=== PATIENT | male | born 1955 | race Caucasian/White ===

== ENCOUNTER → 2022-08-10 10:55 | Outpatient (BNVA) | payer MEDICARE, BC, SELFPAY | PROVIDERS: Family Provider Family Medicine; PCP Registered Nurse; Visit Provider Internal Medicine Pulmonary Disease | DX: J45.909 Unspecified asthma, uncomplicated (principal); R06.02 Shortness of breath | CPT/HCPCS: 36415; 82785; 85025; 86003; 99204 ==

== ENCOUNTER 2022-08-16 06:49 | Outpatient (CLI) | payer MEDICARE, BC, SELFPAY ==
--- NOTE | 2022-08-16 07:14 | CT_ITS ---
WS: [id number] CT NECK TECHNIQUE: Contrast-enhanced CT of the neck with coronal and sagittal reformatted images. CLINICAL INFORMATION: DYSPHAGIA COMPARISON: CT neck 2018 DLP: 162.[address] scans at [facility] use at least one of these dose optimization techniques: automated e xposure control; mA and/or kV adjustment per patient size (includes targeted exams where dose is matc hed to clinical indication); or iterative reconstruction. FINDINGS: Lung apices are well aerated. LEFT mastoid air cells well aerated. Prior RIGHT canal wall up mastoide ctomy. Visualized mastoidectomy bowl well aerated. Maxillary sinusitis with air-fluid levels and mild mucosal thickening. Mild mucosal thickening in the ethmoid air cells and sphenoid sinuses. Normal posterior nasopharynx. Normal parapharyngeal fat. Chronic LEFT submandibular duct calculus is unchanged since 2018. Absent or atrophic LEFT submandibular gland. Normal RIGHT submandibular gland. No evidence of supraglottic or glottic mass. Normal palatine tonsils. Normal glottis. Normal subglott ic airway. Parotid glands are normal. No cervical lymphadenopathy. Straightening of the normal cervic al lordosis. Moderate spondylitic changes cervical spine. Mild carotid bulb calcification. CT/CT neck w con* [id number] IMPRESSION: 1. Chronic LEFT submandibular duct calculus measuring 9 mm unchanged since 201 8. Absent or atrophic LEFT submandibular gland. 2. Salivary glands are otherwise normal in appearance. 3. Normal posterior nasopharynx. Normal parapharyngeal fat. 4. No evidence of supraglottic or glottic mass. 5. No cervical lymphadenopathy. 6. Prior RIGHT canal wall up mastoidectomy 7. Mild maxillary sinusitis.
[2022-08-16 07:45] LABS: Blood Urea Nitrogen 12 mg/dL (8-23); Glomerular Filtration Rate 84.7 mL/min (90-130)
[2022-08-16] MEDS: iohexol 350 mg/mL 500 mL Btl (per mL) IV (07:56)
--- NOTE | 2022-08-16 07:59 | FL_ITS ---
WS: [id number] Exam: FL barium swallow [id number] Date/Time of Exam: 08/16/2022 8:06 AM Reason For Exam: DYSPHAGIA Fluoroscopy time: 2min [id number] minutes # of spot films: 7 Swallowing function at the level of the oropharynx was normal. No aspiration identified. The esophagu s is smooth in contour with normal motility. No sign of esophageal stricture or mass. No hiatal herni a. No reflux was observed during fluoroscopy. FL/FL barium swallow [id number] IMPRESSION: 1. Unremarkable barium swallow.
== END 2022-08-16 06:50 | disposition home or self-care (01) ==
LOC: RAD 06:53
PROVIDERS: PCP Registered Nurse; Visit Provider Specialist
DX: R13.10 Dysphagia, unspecified (principal); J32.0 Chronic maxillary sinusitis
CPT/HCPCS: 70491; 74220; 82565; 84520; Q9967

== ENCOUNTER 2022-08-23 10:00 | Outpatient (CLI) | payer MEDICARE, BC, SELFPAY ==
--- NOTE | 2022-08-23 10:17 | FL_ITS ---
WS: [id number] FL barium swallow modifd [id number] REASON FOR EXAM: Other dysphagia FLUOROSCOPY TIME: 2min [id number] # OF SPOT FILMS: 0 FINDINGS: Examination was supervised by the speech therapy department. The swallowing of multiple consistencies of barium in the upright sitting lateral projection was dario tored fluoroscopically and recorded. Detailed analysis and report will be rendered by the speech therapy department. No aspiration noted. FL/FL barium swallow modifd [id number] IMPRESSION: Modified barium swallow as above.
== END 2022-08-23 10:01 | disposition home or self-care (01) ==
LOC: RAD 10:04
PROVIDERS: PCP Registered Nurse; Visit Provider Specialist
DX: R13.19 Other dysphagia (principal)
CPT/HCPCS: 74230

== ENCOUNTER 2022-09-06 07:45 | Outpatient (CLI) | payer MEDICARE, BC, SELFPAY ==
[2022-09-06 08:01] VITALS: PULSE 69; RESP 16; O2SAT 99
[2022-09-06] MEDS: albuterol 2.5 mg/3 mL Neb INHALATION (08:01)
[2022-09-06 08:06] VITALS: PULSE 71
[2022-09-06 08:21] VITALS: BP 110/76; BP 123/71
== END 2022-09-06 07:46 | disposition home or self-care (01) ==
PROVIDERS: PCP Registered Nurse; Visit Provider Internal Medicine Pulmonary Disease
DX: J45.909 Unspecified asthma, uncomplicated (principal); U09.9 Post COVID-19 condition, unspecified
CPT/HCPCS: 94618; J7613

== ENCOUNTER → 2023-01-02 12:57 | Outpatient (BNVA) | payer MEDICARE, BC, SELFPAY | PROVIDERS: PCP Registered Nurse; Visit Provider Internal Medicine Pulmonary Disease | DX: U09.9 Post COVID-19 condition, unspecified; R91.8 Other nonspecific abnormal finding of lung field; J45.20 Mild intermittent asthma, uncomplicated; Z87.891 Personal history of nicotine dependence | CPT/HCPCS: 99214 ==

== ENCOUNTER → 2023-07-05 10:58 | Outpatient (BNVA) | payer MEDICARE, BC, SELFPAY | PROVIDERS: PCP Registered Nurse; Visit Provider Internal Medicine Pulmonary Disease | DX: J45.30 Mild persistent asthma, uncomplicated (principal); U09.9 Post COVID-19 condition, unspecified; R05.3 Chronic cough; R91.8 Other nonspecific abnormal finding of lung field | CPT/HCPCS: 99214 ==

== ENCOUNTER 2023-07-27 10:55 | Outpatient (CLI) | payer MEDICARE, BC, SELFPAY ==
--- NOTE | 2023-07-27 12:00 | CTR_ITS ---
PROCEDURE INFORMATION: Exam: CT Chest Without Contrast; Diagnostic Exam date and time: 07/27/2023 11:41 AM Age: 67 years old Clinical indication: Abnormal findings; Abnormal radiologic exam of lung or chest; Additional info: To follow on left lung nodule in July 2022 TECHNIQUE: Imaging protocol: Diagnostic computed tomography of the chest without contrast. Radiation optimization: All CT scans at this facility use at least one of these dose optimization techniques: automated exposure control; mA and/or kV adjustment per patient size (includes targeted exams where dose is matched to clinical indication); or iterative reconstruction. COMPARISON: CT chest w con* [id number] 08/05/2022 11:58 AM RADIATION DOSE METRICS: Total DLP (mGy-cm): 358.24 FINDINGS: No thin slice images were provided. Lungs: Unchanged 4 mm left lower lobe nodule series 4, image 42. Unchanged right perifissural nodule on image 38. No new or enlarging pulmonary nodules Pleural spaces: No pneumothorax or pleural effusion. Heart: Coronary calcifications. No pericardial effusion. Lymph nodes: No enlarged lymph nodes. Vasculature: No aortic aneurysm. Bones/joints: No acute findings Soft tissues: No acute findings. CT/CT chest wo con [id number] IMPRESSION: Unchanged tiny pulmonary nodules. No new/acute chest findings
== END 2023-07-27 10:56 | disposition home or self-care (01) ==
LOC: RAD 10:55
PROVIDERS: PCP Registered Nurse; Visit Provider Internal Medicine Pulmonary Disease
DX: R91.8 Other nonspecific abnormal finding of lung field (principal)
CPT/HCPCS: 71250

== ENCOUNTER → 2023-11-06 13:01 | Outpatient (BNVA) | payer MEDICARE, BC, SELFPAY | PROVIDERS: PCP Registered Nurse; Visit Provider Surgery | DX: R13.10 Dysphagia, unspecified (principal) | CPT/HCPCS: 99204 ==

== ENCOUNTER 2024-01-10 07:06 | Day surgery (SDC) | payer MEDICARE, BC, SELFPAY ==
[2024-01-10 07:25] VITALS: BP 134/66; PULSE 64; RESP 16; TEMP 36.1; O2SAT 100; BMI 24.3
--- NOTE | 2024-01-10 07:43 | ANES.PREANE2 ---
Pre-Anesthetic Assessment Height/Weight: Height 5 ft 11 in Weight 174 lb Temp Pulse Resp BP Pulse Ox O2 Del Method 97 F L 64 16 134/66 100 Room Air 01/10/24 07:25 01/10/24 07:25 01/10/24 07:25 01/10/24 07:25 01/10/24 07:25 01/10/24 07:25 Operation Date: 01/10/24 08:30 Proposed Procedures p EGD Dilation W/ Balloon [id number], R13.10(Not Applicable) - Enzo Hale DO Last intake: Intake Last Liquid Date 01/09/24 Last Liquid Time 22:30 Last Solid Date 01/09/24 Last Solid Time 22:30 Social No alcohol and No tobacco Exam alert, oriented x 3 and clear to auscultation bilaterally Airway Submandibular: within normal limits Cervical ROM: within normal limits Mallampati: Class II Comments: Comments: few missing teeth on bottom Anesthetic Plan ASA status: 2 Anesthesia: MAC Other: No prior issues with anesthesia Patient notes difficulty swallowing, here for dilation today Patient had COVID 1 year ago and notes having chronic cough secondary to asthma and COVID METS greater than 4 Plan for MAC anesthesia Medications/Allergies Home Medications Medication Instructions Recorded Confirmed Last Taken Type budesonide-formoterol HFA 80 2 puff inhalation BID #10.2 grams 07/17/23 01/10/24 01/10/24 Rx mcg-4.5 mcg/actuation aerosol inhaler (Symbicort) atorvastatin 10 mg tablet 10 mg PO DAILY 11/06/23 01/10/24 01/09/24 History cyanocobalamin (vitamin B-12) 1,000 mcg PO DAILY 01/08/24 01/10/24 01/09/24 History 1,000 mcg tablet (Vitamin B-12) ferrous sulfate 325 mg (65 mg 65 mg PO DAILY 01/08/24 01/10/24 01/09/24 History iron) capsule,extended release Allergies Allergy/AdvReac Type Severity Reaction Status Date / Time No Known Allergies Allergy Verified 01/08/24 09:23 [facility] Anesthesia Family History Father Cancer, Onset Age: 56 colon cancer Social History Smoking and tobacco/nicotine status: former use of tobacco/nicotine Quit status (tobacco/nicotine): has quit using Year quit tobacco: 1978 Former quit date comment: 2-3 cigarettes/ day Second hand smoke exposure: No Alcohol intake: unknown Data Anesthesia Cardiac Studies: No Data to Display
[2024-01-10] MEDS: sodium chloride 0.9% 1,000 ML 30 ML IV (07:44)
--- NOTE | 2024-01-10 08:18 | PM.HP ---
Providers/Chief Complaint Primary Care Provider: Hellen Garcia Chief Complaint: R13.10 History of Present Illness Chilo Patiño is a 68 year old male Review of Systems General: Reports: 10 or more systems reviewed and unremarkable except in HPI and below Medications/Allergies Home Medications Medication Instructions Recorded Confirmed Last Taken Type budesonide-formoterol HFA 80 2 puff inhalation BID #10.2 grams 07/17/23 01/10/24 01/10/24 Rx mcg-4.5 mcg/actuation aerosol inhaler (Symbicort) atorvastatin 10 mg tablet 10 mg PO DAILY 11/06/23 01/10/24 01/09/24 History cyanocobalamin (vitamin B-12) 1,000 mcg PO DAILY 01/08/24 01/10/24 01/09/24 History 1,000 mcg tablet (Vitamin B-12) ferrous sulfate 325 mg (65 mg 65 mg PO DAILY 01/08/24 01/10/24 01/09/24 History iron) capsule,extended release Allergies Allergy/AdvReac Type Severity Reaction Status Date / Time No Known Allergies Allergy Verified 01/08/24 09:23 PFSH Acute PFSH: Family History Father Cancer, Onset Age: 56 colon cancer Social History Smoking and tobacco/nicotine status: former use of tobacco/nicotine Quit status (tobacco/nicotine): has quit using Year quit tobacco: 1978 Former quit date comment: 2-3 cigarettes/ day Second hand smoke exposure: No Alcohol intake: unknown Vitals/I&O/Wt Last Vital Signs Temp 97 F L 01/10/24 07:25 Pulse 64 01/10/24 07:25 Resp 16 01/10/24 07:25 BP 134/66 01/10/24 07:25 Pulse Ox 100 01/10/24 07:25 O2 Del Method Room Air 01/10/24 07:25 Weight last 48 hrs Weight 174 lb A&P Assessment and plan (1) Dysphagia: Plan EGD with possible balloon dilation Attestations Medical Necessity Statement*: Home Coding Level of Care Code Acute Code for Chg Fwd Diagnoses Dysphagia R13.10
[2024-01-10 08:43] VITALS: BP 109/68; PULSE 64; RESP 18; TEMP 36.3; O2SAT 99
[2024-01-10 08:56] VITALS: BP 109/61; PULSE 64; RESP 16; O2SAT 99
--- NOTE | 2024-01-10 09:20 | ANE.PACU2 ---
Inpatient post-anesthesia follow up: Airway intact: Yes Vital signs: Temperature 97.4 F Pulse Rate 64 Respiratory Rate 16 Blood Pressure 109/61 Pulse Oximetry 99 Oxygen Delivery Me thod Room Air Oxygen Flow Rate Fraction of Inspir ed Oxygen Hydration adequate: Yes Nausea and vomiting: No Pain level: 1 Mental status: Baseline
== END 2024-01-10 09:20 | disposition home or self-care (01) ==
PROVIDERS: PCP Registered Nurse; Visit Provider Surgery
DX: R13.10 Dysphagia, unspecified (principal); K22.2 Esophageal obstruction; K29.80 Duodenitis without bleeding; C41.9 Malignant neoplasm of bone and articular cartilage, unspecified; Z87.891 Personal history of nicotine dependence
CPT/HCPCS: 43239; 43249; 88305; J2704; J7030

== ENCOUNTER → 2024-01-26 08:43 | Outpatient (BNVA) | payer MEDICARE, BC, SELFPAY | PROVIDERS: PCP Registered Nurse; Visit Provider Surgery | DX: Z09 Encounter for follow-up examination after completed treatment for conditions other than malignant neoplasm (principal); R13.10 Dysphagia, unspecified; K22.2 Esophageal obstruction | CPT/HCPCS: 99214 ==

== ENCOUNTER 2024-02-13 08:45 | Oncology outpatient (recurring) (ONCR) | payer MEDICARE, BC, SELFPAY ==
[2024-02-13 09:11] LABS: Basophils % 0.4 %; Eosinophils % 0.4 %; Hematocrit 26.3 % (37-53); Lymphocytes # 0.4 10^3/uL (0.8-4.8); Lymphocytes % 15.4 %; Mean Corpuscular HGB Conc 33.5 g/dL (30-55); Mean Corpuscular Hemoglobin 38.3 pg (27-33); Mean Corpuscular Volume 114.3 fl (82-101); Mean Platelet Volume 9.7 fL (7.4-10.4); Monocytes # 0.1 10^3/uL (0.2-0.9); Monocytes % 3.3 %; Neutrophils # 2.19 10^3/uL (1.8-7.7); Neutrophils % 80.1 %; Nucleated Red Blood Cells % 0 %; Platelet Count 151 10^3/cmm (157-399); Red Cell Distribution Width 16.3 % (12.1-15.1); White Blood Count 2.73 10^3/uL (3.29-11.43)
[2024-02-13 09:34] LABS: Alanine Aminotransferase 23 U/L (0-41); Albumin Level 4.3 g/dL (3.5-5.2); Alkaline Phosphatase 103 U/L (40-130); Anion Gap 13.3 (5-19); Aspartate Amino Transferase 25 U/L (0-40); Blood Urea Nitrogen 17 mg/dL (8-23); Calcium 9.2 mg/dL (8.5-10.5); Carbon Dioxide 27 mmol/L (22-29); Chloride 100 mmol/L (98-107); Creatinine Clr Calc Pharmacy 97.7876; Globulin 2.9 g/dL (1.3-4.6); Glomerular Filtration Rate 96.4 mL/min (90-130); Glucose 106 mg/dL (65-115); Lactate Dehydrogenase 209 U/L (135-225); Osmolality Calculated 284 mOsm/kg (285-295); Potassium 4.3 mmol/L (3.5-5.1); Sodium 136 mmol/L (136-145); Total Bilirubin 0.5 mg/dL (0.15-1.2); Total Protein 7.2 g/dL (6.6-8.7)
[2024-02-13] MEDS: luspatercept-aamt 25 mg 80 MG SUBCUT (11:01)
== END 2024-02-13 23:59 | disposition home or self-care (01) ==
PROVIDERS: PCP Registered Nurse; Visit Provider Internal Medicine Medical Oncology
DX: Z53.9 Procedure and treatment not carried out, unspecified reason (principal); D46.1 Refractory anemia with ring sideroblasts; Z87.891 Personal history of nicotine dependence; Z79.899 Other long term (current) drug therapy
CPT/HCPCS: 36415; 80053; 82668; 83615; 85025; 96372; 99205; 99215; J0896

== ENCOUNTER 2024-03-05 10:03 | Oncology outpatient (recurring) (ONCR) | payer MEDICARE, BC, SELFPAY ==
[2024-03-05 10:17] LABS: Basophils % 1.6 %; Eosinophils # 0.1 10^3/uL (0.0-0.8); Hematocrit 28.2 % (37-53); Lymphocytes % 37.5 %; Mean Corpuscular HGB Conc 33.3 g/dL (30-55); Mean Corpuscular Hemoglobin 38.8 pg (27-33); Mean Corpuscular Volume 116.5 fl (82-101); Monocytes # 0.4 10^3/uL (0.2-0.9); Monocytes % 14.5 %; Neutrophils # 1.05 10^3/uL (1.8-7.7); Neutrophils % 40.9 %; Nucleated Red Blood Cells % 0 %; Platelet Count 147 10^3/cmm (157-399); Red Blood Count 2.42 10^6/uL (3.85-5.65); Red Cell Distribution Width 16.9 % (12.1-15.1); White Blood Count 2.56 10^3/uL (3.29-11.43)
[2024-03-05 10:38] LABS: Alanine Aminotransferase 19 U/L (0-41); Albumin Level 4.4 g/dL (3.5-5.2); Alkaline Phosphatase 100 U/L (40-130); Anion Gap 11.7 (5-19); Aspartate Amino Transferase 22 U/L (0-40); Blood Urea Nitrogen 23 mg/dL (8-23); Carbon Dioxide 27 mmol/L (22-29); Chloride 104 mmol/L (98-107); Creatinine Clr Calc Pharmacy 70.5744; Globulin 2.8 g/dL (1.3-4.6); Glomerular Filtration Rate 66.8 mL/min (90-130); Glucose 102 mg/dL (65-115); Osmolality Calculated 290 mOsm/kg (285-295); Potassium 4.7 mmol/L (3.5-5.1); Sodium 138 mmol/L (136-145); Total Bilirubin 0.5 mg/dL (0.15-1.2); Total Protein 7.2 g/dL (6.6-8.7)
[2024-03-05] MEDS: luspatercept-aamt 25 mg 75 MG SUBCUT (12:34)
== END 2024-03-05 23:59 | disposition home or self-care (01) ==
PROVIDERS: Nurse Practitioner Family; PCP Registered Nurse; Visit Provider Internal Medicine Medical Oncology
DX: D46.1 Refractory anemia with ring sideroblasts (principal); Z87.891 Personal history of nicotine dependence; Z79.899 Other long term (current) drug therapy
CPT/HCPCS: 36415; 80053; 85025; 96372; 99214; J0896

== ENCOUNTER 2024-03-26 12:46 | Oncology outpatient (recurring) (ONCR) | payer MEDICARE, BC, SELFPAY ==
[2024-03-26 13:41] LABS: Reticulocyte % 3.3 % (0.5-2.0)
[2024-03-26 13:42] LABS: Basophils % 0.9 %; Eosinophils % 0.9 %; Hematocrit 29.5 % (37-53); Lymphocytes # 1.1 10^3/uL (0.8-4.8); Lymphocytes % 35.3 %; Mean Corpuscular HGB Conc 33.2 g/dL (30-55); Mean Corpuscular Hemoglobin 39.2 pg (27-33); Mean Platelet Volume 9.8 fL (7.4-10.4); Monocytes # 0.3 10^3/uL (0.2-0.9); Monocytes % 9.1 %; Neutrophils # 1.59 10^3/uL (1.8-7.7); Neutrophils % 49.7 %; Nucleated Red Blood Cells % 0 %; Platelet Count 156 10^3/cmm (157-399); Red Cell Distribution Width 17.2 % (12.1-15.1)
[2024-03-26 14:14] LABS: Albumin Level 4.3 g/dL (3.5-5.2); Chloride 102 mmol/L (98-107); Potassium 4.9 mmol/L (3.5-5.1); Sodium 135 mmol/L (136-145)
[2024-03-26 14:30] LABS: Folate Level 15.9 ng/mL (4.5-32.2)
[2024-03-26] MEDS: luspatercept-aamt 25 mg 80.5 MG SUBCUT (15:04)
[2024-03-26 15:23] LABS: Alanine Aminotransferase 16 U/L (0-41); Alkaline Phosphatase 123 U/L (40-130); Anion Gap 12.9 (5-19); Aspartate Amino Transferase 20 U/L (0-40); Blood Urea Nitrogen 17 mg/dL (8-23); Calcium 8.8 mg/dL (8.5-10.5); Carbon Dioxide 25 mmol/L (22-29); Creatinine Clr Calc Pharmacy 87.2796; Globulin 2.3 g/dL (1.3-4.6); Glomerular Filtration Rate 84.2 mL/min (90-130); Glucose 96 mg/dL (65-115); Lactate Dehydrogenase 221 U/L (135-225); Osmolality Calculated 281 mOsm/kg (285-295); Total Bilirubin 0.3 mg/dL (0.15-1.2); Total Protein 6.6 g/dL (6.6-8.7)
[2024-03-26 15:41] LABS: Ferritin 774 ng/mL (30-400); Iron 137 ug/dL (59-158); Percent Saturation 61.7 % (20-50); Total Iron Binding Capacity 222 mcg/dl; Unsaturated Iron Binding 85 ug/dL (112-347)
[2024-03-26 16:10] LABS: Vitamin B12 682 pg/mL (232-1245)
[2024-04-02 14:35] LABS: Soluble Transferrin Receptor 1.23 mg/L (0.76-1.76)
== END 2024-03-26 23:59 | disposition home or self-care (01) ==
PROVIDERS: PCP Registered Nurse; Visit Provider Internal Medicine Hematology & Oncology
DX: D46.1 Refractory anemia with ring sideroblasts (principal); Z87.891 Personal history of nicotine dependence; Z79.899 Other long term (current) drug therapy
CPT/HCPCS: 36415; 80053; 82607; 82728; 82746; 83540; 83550; 83615; 84238; 85025; 85045; 96372; 99214; J0896

== ENCOUNTER 2024-04-16 12:50 | Oncology outpatient (recurring) (ONCR) | payer MEDICARE, BC, SELFPAY ==
[2024-04-16 13:19] LABS: Basophils % 1.1 %; Eosinophils % 1.1 %; Hematocrit 29.7 % (37-53); Lymphocytes # 1.1 10^3/uL (0.8-4.8); Lymphocytes % 41.5 %; Mean Corpuscular HGB Conc 33.7 g/dL (30-55); Mean Corpuscular Hemoglobin 38.2 pg (27-33); Mean Corpuscular Volume 113.4 fl (82-101); Mean Platelet Volume 9.4 fL (7.4-10.4); Monocytes # 0.3 10^3/uL (0.2-0.9); Monocytes % 10.7 %; Neutrophils # 1.12 10^3/uL (1.8-7.7); Neutrophils % 41.5 %; Nucleated Red Blood Cells % 0 %; Platelet Count 182 10^3/cmm (157-399); Red Blood Count 2.62 10^6/uL (3.85-5.65); Red Cell Distribution Width 17.1 % (12.1-15.1)
[2024-04-16 13:42] LABS: Alanine Aminotransferase 18 U/L (0-41); Albumin Level 4.2 g/dL (3.5-5.2); Alkaline Phosphatase 112 U/L (40-130); Anion Gap 13.8 (5-19); Aspartate Amino Transferase 20 U/L (0-40); Blood Urea Nitrogen 18 mg/dL (8-23); Calcium 9.1 mg/dL (8.5-10.5); Carbon Dioxide 26 mmol/L (22-29); Chloride 100 mmol/L (98-107); Ferritin 878 ng/mL (30-400); Globulin 2.3 g/dL (1.3-4.6); Glomerular Filtration Rate 84.2 mL/min (90-130); Glucose 102 mg/dL (65-115); Iron 121 ug/dL (59-158); Osmolality Calculated 282 mOsm/kg (285-295); Percent Saturation 53.3 % (20-50); Potassium 4.8 mmol/L (3.5-5.1); Sodium 135 mmol/L (136-145); Total Bilirubin 0.2 mg/dL (0.15-1.2); Total Iron Binding Capacity 227 mcg/dl; Total Protein 6.5 g/dL (6.6-8.7); Unsaturated Iron Binding 106 ug/dL (112-347)
[2024-04-16] MEDS: luspatercept-aamt 25 mg 80 MG SUBCUT (14:57)
== END 2024-04-16 23:59 | disposition home or self-care (01) ==
PROVIDERS: Internal Medicine Medical Oncology; PCP Registered Nurse; Visit Provider Internal Medicine Hematology & Oncology
DX: D46.1 Refractory anemia with ring sideroblasts (principal); Z87.891 Personal history of nicotine dependence; Z79.899 Other long term (current) drug therapy
CPT/HCPCS: 80053; 82728; 83540; 83550; 85025; 96372; 99213; J0896

== ENCOUNTER 2024-05-07 11:50 | Oncology outpatient (recurring) (ONCR) | payer MEDICARE, BC, SELFPAY ==
[2024-05-07 12:18] LABS: Hematocrit 28.8 % (37-53); Lymphocytes % 33.7 %; Mean Corpuscular Volume 115.2 fl (82-101); Mean Platelet Volume 9.3 fL (7.4-10.4); Monocytes # 0.3 10^3/uL (0.2-0.9); Monocytes % 9.7 %; Neutrophils # 1.58 10^3/uL (1.8-7.7); Nucleated Red Blood Cells % 0 %; Platelet Count 146 10^3/cmm (157-399); White Blood Count 3.09 10^3/uL (3.29-11.43)
[2024-05-07 12:35] LABS: Alanine Aminotransferase 24 U/L (0-41); Albumin Level 4.1 g/dL (3.5-5.2); Alkaline Phosphatase 116 U/L (40-130); Anion Gap 13.5 (5-19); Aspartate Amino Transferase 27 U/L (0-40); Blood Urea Nitrogen 18 mg/dL (8-23); Calcium 9.1 mg/dL (8.5-10.5); Carbon Dioxide 26 mmol/L (22-29); Chloride 103 mmol/L (98-107); Creatinine Clr Calc Pharmacy 79.4715; Globulin 2.5 g/dL (1.3-4.6); Glomerular Filtration Rate 74.5 mL/min (90-130); Glucose 88 mg/dL (65-115); Osmolality Calculated 287 mOsm/kg (285-295); Potassium 4.5 mmol/L (3.5-5.1); Sodium 138 mmol/L (136-145); Total Bilirubin 0.4 mg/dL (0.15-1.2); Total Protein 6.6 g/dL (6.6-8.7)
[2024-05-07] MEDS: LUSPATERCEPT AAMT 80.5 MG SUBCUT (14:08)
== END 2024-05-07 23:59 | disposition home or self-care (01) ==
PROVIDERS: PCP Registered Nurse; Visit Provider Internal Medicine Medical Oncology
DX: D46.1 Refractory anemia with ring sideroblasts (principal); Z79.899 Other long term (current) drug therapy
CPT/HCPCS: 80053; 85025; 96372; J0896

== ENCOUNTER 2024-05-28 11:23 | Oncology outpatient (recurring) (ONCR) | payer MEDICARE, BC, SELFPAY ==
[2024-05-28 11:41] LABS: Basophils % 1.1 %; Eosinophils # 0.1 10^3/uL (0.0-0.8); Eosinophils % 2.2 %; Hematocrit 30.3 % (37-53); Lymphocytes # 1.6 10^3/uL (0.8-4.8); Lymphocytes % 42.7 %; Mean Corpuscular Hemoglobin 37.6 pg (27-33); Mean Corpuscular Volume 113.9 fl (82-101); Mean Platelet Volume 10.1 fL (7.4-10.4); Monocytes # 0.3 10^3/uL (0.2-0.9); Monocytes % 9.3 %; Neutrophils # 1.51 10^3/uL (1.8-7.7); Neutrophils % 41.4 %; Nucleated Red Blood Cells % 0 %; Platelet Count 134 10^3/cmm (157-399); Red Blood Count 2.66 10^6/uL (3.85-5.65); Red Cell Distribution Width 16.7 % (12.1-15.1); White Blood Count 3.65 10^3/uL (3.29-11.43)
[2024-05-28 12:07] LABS: Alanine Aminotransferase 31 U/L (0-41); Albumin Level 4.1 g/dL (3.5-5.2); Alkaline Phosphatase 86 U/L (40-130); Anion Gap 13.8 (5-19); Aspartate Amino Transferase 35 U/L (0-40); Blood Urea Nitrogen 13 mg/dL (8-23); Calcium 9.4 mg/dL (8.5-10.5); Carbon Dioxide 27 mmol/L (22-29); Chloride 99 mmol/L (98-107); Creatinine Clr Calc Pharmacy 78.7358; Globulin 3.5 g/dL (1.3-4.6); Glomerular Filtration Rate 74.5 mL/min (90-130); Glucose 95 mg/dL (65-115); Osmolality Calculated 280 mOsm/kg (285-295); Potassium 4.8 mmol/L (3.5-5.1); Sodium 135 mmol/L (136-145); Total Bilirubin 0.4 mg/dL (0.15-1.2); Total Protein 7.6 g/dL (6.6-8.7)
[2024-05-28 12:08] LABS: Slide Review Slide Review Perform
[2024-05-28] MEDS: LUSPATERCEPT AAMT 80.5 MG SUBCUT (12:54)
== END 2024-05-28 23:59 | disposition home or self-care (01) ==
PROVIDERS: PCP Registered Nurse; Visit Provider Internal Medicine Medical Oncology
DX: D46.1 Refractory anemia with ring sideroblasts (principal); Z87.891 Personal history of nicotine dependence; Z79.899 Other long term (current) drug therapy
CPT/HCPCS: 36415; 80053; 85025; 96372; 99213; J0896

== ENCOUNTER 2024-06-18 12:11 | Oncology outpatient (recurring) (ONCR) | payer MEDICARE, BC, SELFPAY ==
[2024-06-18 12:24] LABS: Basophils % 0.6 %; Eosinophils % 0.9 %; Hematocrit 27.5 % (37-53); Lymphocytes # 1.3 10^3/uL (0.8-4.8); Lymphocytes % 39.4 %; Mean Corpuscular HGB Conc 32.7 g/dL (30-55); Mean Corpuscular Hemoglobin 37.3 pg (27-33); Mean Corpuscular Volume 114.1 fl (82-101); Mean Platelet Volume 9.9 fL (7.4-10.4); Monocytes # 0.3 10^3/uL (0.2-0.9); Monocytes % 7.9 %; Neutrophils # 1.49 10^3/uL (1.8-7.7); Neutrophils % 47.1 %; Nucleated Red Blood Cells % 0.6 %; Platelet Count 137 10^3/cmm (157-399); Red Blood Count 2.41 10^6/uL (3.85-5.65); Red Cell Distribution Width 17.1 % (12.1-15.1); White Blood Count 3.17 10^3/uL (3.29-11.43)
[2024-06-18 12:43] LABS: Alanine Aminotransferase 20 U/L (0-41); Alkaline Phosphatase 108 U/L (40-130); Anion Gap 14.7 (5-19); Aspartate Amino Transferase 24 U/L (0-40); Blood Urea Nitrogen 16 mg/dL (8-23); Calcium 8.7 mg/dL (8.5-10.5); Carbon Dioxide 26 mmol/L (22-29); Chloride 100 mmol/L (98-107); Globulin 2.7 g/dL (1.3-4.6); Glomerular Filtration Rate 74.5 mL/min (90-130); Glucose 123 mg/dL (65-115); Osmolality Calculated 285 mOsm/kg (285-295); Potassium 4.7 mmol/L (3.5-5.1); Sodium 136 mmol/L (136-145); Total Bilirubin 0.5 mg/dL (0.15-1.2); Total Protein 6.7 g/dL (6.6-8.7)
[2024-06-18] MEDS: LUSPATERCEPT AAMT 80.5 MG SUBCUT (14:29)
[2024-06-18 14:33] VITALS: BP 112/78; PULSE 78; RESP 17; TEMP 36.4; O2SAT 98
== END 2024-06-19 08:12 | disposition home or self-care (01) ==
PROVIDERS: PCP Registered Nurse; Visit Provider Internal Medicine Medical Oncology
DX: D46.1 Refractory anemia with ring sideroblasts (principal); Z79.899 Other long term (current) drug therapy
CPT/HCPCS: 36415; 80053; 85025; 96401; J0896

== ENCOUNTER 2024-07-16 10:51 | Oncology outpatient (recurring) (ONCR) | payer MEDICARE, BC, SELFPAY ==
[2024-07-16 11:57] VITALS: BP 116/70; PULSE 72; RESP 17; TEMP 36.3; O2SAT 97
[2024-07-16 12:34] LABS: Basophils % 0.5 %; Eosinophils % 0.9 %; Lymphocytes # 1.3 10^3/uL (0.8-4.8); Lymphocytes % 29.7 %; Mean Corpuscular HGB Conc 33.8 g/dL (30-55); Mean Corpuscular Hemoglobin 39.6 pg (27-33); Mean Corpuscular Volume 117.1 fl (82-101); Mean Platelet Volume 9.4 fL (7.4-10.4); Monocytes # 0.4 10^3/uL (0.2-0.9); Neutrophils # 2.58 10^3/uL (1.8-7.7); Neutrophils % 59.1 %; Nucleated Red Blood Cells % 0 %; Platelet Count 119 10^3/cmm (157-399); Red Blood Count 2.22 10^6/uL (3.85-5.65); Red Cell Distribution Width 18.5 % (12.1-15.1); White Blood Count 4.37 10^3/uL (3.29-11.43)
[2024-07-16] MEDS: luspatercept-aamt 25 mg 82.5 MG SUBCUT (13:11)
== END 2024-07-16 23:59 | disposition home or self-care (01) ==
PROVIDERS: Nurse Practitioner; PCP Registered Nurse; Visit Provider Internal Medicine Medical Oncology
DX: D46.1 Refractory anemia with ring sideroblasts (principal); Z87.891 Personal history of nicotine dependence; Z79.899 Other long term (current) drug therapy
CPT/HCPCS: 36415; 85025; 96372; J0896

== ENCOUNTER 2024-08-06 12:20 | Oncology outpatient (recurring) (ONCR) | payer MEDICARE, BC, SELFPAY ==
[2024-08-06 13:00] LABS: Basophils % 0.6 %; Eosinophils % 0.9 %; Hematocrit 25.3 % (37-53); Lymphocytes # 1.1 10^3/uL (0.8-4.8); Lymphocytes % 34.5 %; Mean Corpuscular HGB Conc 33.2 g/dL (30-55); Mean Corpuscular Hemoglobin 38.4 pg (27-33); Mean Corpuscular Volume 115.5 fl (82-101); Mean Platelet Volume 9.9 fL (7.4-10.4); Monocytes # 0.3 10^3/uL (0.2-0.9); Monocytes % 8.7 %; Neutrophils % 52.8 %; Nucleated Red Blood Cells % 0 %; Platelet Count 147 10^3/cmm (157-399); Red Blood Count 2.19 10^6/uL (3.85-5.65); Red Cell Distribution Width 18.5 % (12.1-15.1); White Blood Count 3.22 10^3/uL (3.29-11.43)
[2024-08-06 13:24] LABS: Alanine Aminotransferase 19 U/L (0-41); Albumin Level 4.2 g/dL (3.5-5.2); Alkaline Phosphatase 94 U/L (40-130); Anion Gap 15.4 (5-19); Aspartate Amino Transferase 20 U/L (0-40); Blood Urea Nitrogen 16 mg/dL (8-23); Calcium 8.9 mg/dL (8.5-10.5); Carbon Dioxide 25 mmol/L (22-29); Chloride 101 mmol/L (98-107); Creatinine Clr Calc Pharmacy 98.4197; Globulin 2.5 g/dL (1.3-4.6); Glomerular Filtration Rate 96.4 mL/min (90-130); Glucose 93 mg/dL (65-115); Osmolality Calculated 285 mOsm/kg (285-295); Potassium 4.4 mmol/L (3.5-5.1); Sodium 137 mmol/L (136-145); Total Bilirubin 0.5 mg/dL (0.15-1.2); Total Protein 6.7 g/dL (6.6-8.7)
[2024-08-06] MEDS: luspatercept-aamt 25 mg 100 MG SUBCUT (14:21)
== END 2024-08-06 23:59 | disposition home or self-care (01) ==
PROVIDERS: PCP Registered Nurse; Visit Provider Internal Medicine Medical Oncology
DX: D46.1 Refractory anemia with ring sideroblasts (principal); Z87.891 Personal history of nicotine dependence; Z79.899 Other long term (current) drug therapy
CPT/HCPCS: 36415; 80053; 85025; 96401; 99214; J0896

== ENCOUNTER 2024-08-27 08:31 | Oncology outpatient (recurring) (ONCR) | payer MEDICARE, BC, SELFPAY ==
[2024-08-27 09:10] LABS: Basophils % 1.1 %; Eosinophils % 1.1 %; Hematocrit 25.7 % (37-53); Lymphocytes # 1.5 10^3/uL (0.8-4.8); Lymphocytes % 53.4 %; Mean Corpuscular HGB Conc 32.3 g/dL (30-55); Mean Corpuscular Hemoglobin 38.4 pg (27-33); Mean Platelet Volume 9.7 fL (7.4-10.4); Monocytes # 0.3 10^3/uL (0.2-0.9); Monocytes % 10.5 %; Neutrophils % 28.1 %; Nucleated Red Blood Cells % 0 %; Platelet Count 153 10^3/cmm (157-399); Red Blood Count 2.16 10^6/uL (3.85-5.65); Red Cell Distribution Width 18.1 % (12.1-15.1); White Blood Count 2.77 10^3/uL (3.29-11.43)
[2024-08-27 09:21] LABS: Neutrophils # 0.78 10^3/uL (1.8-7.7); Slide Review Slide Review Perform
[2024-08-27 09:22] LABS: Alanine Aminotransferase 16 U/L (0-41); Albumin Level 4.2 g/dL (3.5-5.2); Alkaline Phosphatase 97 U/L (40-130); Anion Gap 12.8 (5-19); Aspartate Amino Transferase 20 U/L (0-40); Blood Urea Nitrogen 17 mg/dL (8-23); Calcium 9.1 mg/dL (8.5-10.5); Carbon Dioxide 25 mmol/L (22-29); Chloride 105 mmol/L (98-107); Creatinine Clr Calc Pharmacy 71.7454; Ferritin 954 ng/mL (30-400); Globulin 2.6 g/dL (1.3-4.6); Glomerular Filtration Rate 66.8 mL/min (90-130); Glucose 95 mg/dL (65-115); Lactate Dehydrogenase 225 U/L (135-225); Osmolality Calculated 287 mOsm/kg (285-295); Potassium 4.8 mmol/L (3.5-5.1); Sodium 138 mmol/L (136-145); Total Bilirubin 0.4 mg/dL (0.15-1.2); Total Protein 6.8 g/dL (6.6-8.7)
[2024-08-27 10:06] LABS: Folate Level > 20.0 ng/mL (4.5-32.2)
[2024-08-27] MEDS: luspatercept-aamt 25 mg 100 MG SUBCUT (10:28)
== END 2024-08-27 23:59 | disposition home or self-care (01) ==
PROVIDERS: PCP Registered Nurse; Visit Provider Internal Medicine Medical Oncology
DX: D46.1 Refractory anemia with ring sideroblasts (principal); Z87.891 Personal history of nicotine dependence; Z79.899 Other long term (current) drug therapy
CPT/HCPCS: 36415; 80053; 82728; 82746; 83615; 85025; 96401; 99214; J0896

== ENCOUNTER 2024-09-17 12:16 | Oncology outpatient (recurring) (ONCR) | payer MEDICARE, BC, SELFPAY ==
[2024-09-17 12:41] LABS: Basophils % 0.4 %; Eosinophils % 0.8 %; Hematocrit 25.6 % (37-53); Lymphocytes # 1.1 10^3/uL (0.8-4.8); Lymphocytes % 41.4 %; Mean Corpuscular HGB Conc 33.2 g/dL (30-55); Mean Corpuscular Hemoglobin 39.2 pg (27-33); Mean Platelet Volume 9.3 fL (7.4-10.4); Monocytes # 0.2 10^3/uL (0.2-0.9); Monocytes % 8.8 %; Neutrophils # 1.17 10^3/uL (1.8-7.7); Neutrophils % 44.8 %; Nucleated Red Blood Cells % 0 %; Platelet Count 109 10^3/cmm (157-399); Red Blood Count 2.17 10^6/uL (3.85-5.65); Red Cell Distribution Width 17.7 % (12.1-15.1); White Blood Count 2.61 10^3/uL (3.29-11.43)
[2024-09-17 13:19] LABS: Alanine Aminotransferase 14 U/L (0-41); Albumin Level 4.4 g/dL (3.5-5.2); Alkaline Phosphatase 92 U/L (40-130); Anion Gap 13.7 (5-19); Aspartate Amino Transferase 20 U/L (0-40); Blood Urea Nitrogen 12 mg/dL (8-23); Calcium 8.8 mg/dL (8.5-10.5); Carbon Dioxide 25 mmol/L (22-29); Chloride 103 mmol/L (98-107); Creatinine Clr Calc Pharmacy 78.7358; Ferritin 846 ng/mL (30-400); Globulin 2.6 g/dL (1.3-4.6); Glomerular Filtration Rate 74.5 mL/min (90-130); Glucose 108 mg/dL (65-115); Iron 158 ug/dL (59-158); Osmolality Calculated 284 mOsm/kg (285-295); Percent Saturation 64.4 % (20-50); Potassium 4.7 mmol/L (3.5-5.1); Sodium 137 mmol/L (136-145); Total Bilirubin 0.5 mg/dL (0.15-1.2); Total Iron Binding Capacity 245 mcg/dl; Unsaturated Iron Binding 87 ug/dL (112-347)
[2024-09-17 13:20] LABS: Vitamin B12 997 pg/mL (232-1245)
[2024-09-17 13:33] LABS: Folate Level > 20.0 ng/mL (4.5-32.2)
[2024-09-17] MEDS: luspatercept-aamt 25 mg 100 MG SUBCUT (14:16)
== END 2024-09-17 23:59 | disposition home or self-care (01) ==
PROVIDERS: PCP Registered Nurse; Visit Provider Internal Medicine Medical Oncology
DX: D46.1 Refractory anemia with ring sideroblasts (principal); R03.0 Elevated blood-pressure reading, without diagnosis of hypertension; Z79.899 Other long term (current) drug therapy; Z87.891 Personal history of nicotine dependence
CPT/HCPCS: 36415; 80053; 82607; 82728; 82746; 83540; 83550; 85025; 96372; 99214; J0896

== ENCOUNTER 2024-10-08 13:38 | Oncology outpatient (recurring) (ONCR) | payer MEDICARE, BC, SELFPAY ==
[2024-10-08 13:55] LABS: Basophils % 0.6 %; Eosinophils % 0.3 %; Hematocrit 23.7 % (37-53); Lymphocytes # 1.1 10^3/uL (0.8-4.8); Lymphocytes % 30.7 %; Mean Corpuscular HGB Conc 32.1 g/dL (30-55); Mean Corpuscular Volume 118.5 fl (82-101); Mean Platelet Volume 10.1 fL (7.4-10.4); Monocytes # 0.2 10^3/uL (0.2-0.9); Monocytes % 6.1 %; Neutrophils # 2.11 10^3/uL (1.8-7.7); Neutrophils % 58.4 %; Nucleated Red Blood Cells % 0 %; Platelet Count 124 10^3/cmm (157-399); Red Cell Distribution Width 17.3 % (12.1-15.1); White Blood Count 3.61 10^3/uL (3.29-11.43)
[2024-10-08 14:13] LABS: Alanine Aminotransferase 13 U/L (0-41); Alkaline Phosphatase 92 U/L (40-130); Anion Gap 13.8 (5-19); Aspartate Amino Transferase 19 U/L (0-40); Blood Urea Nitrogen 16 mg/dL (8-23); Calcium 8.4 mg/dL (8.5-10.5); Carbon Dioxide 22 mmol/L (22-29); Chloride 104 mmol/L (98-107); Globulin 2.3 g/dL (1.3-4.6); Glomerular Filtration Rate 66.8 mL/min (90-130); Glucose 90 mg/dL (65-115); Lactate Dehydrogenase 207 U/L (135-225); Osmolality Calculated 281 mOsm/kg (285-295); Potassium 4.8 mmol/L (3.5-5.1); Sodium 135 mmol/L (136-145); Total Bilirubin 0.3 mg/dL (0.15-1.2); Total Protein 6.3 g/dL (6.6-8.7)
[2024-10-08] MEDS: luspatercept-aamt 25 mg 142 MG SUBCUT (16:04)
== END 2024-10-08 23:59 | disposition home or self-care (01) ==
PROVIDERS: Nurse Practitioner Family; PCP Registered Nurse; Visit Provider Internal Medicine Medical Oncology
DX: D46.1 Refractory anemia with ring sideroblasts (principal); Z87.891 Personal history of nicotine dependence; Z79.899 Other long term (current) drug therapy; R03.0 Elevated blood-pressure reading, without diagnosis of hypertension
CPT/HCPCS: 36415; 80053; 83615; 85025; 86850; 86900; 86920; 96372; 99214; J0896

== ENCOUNTER 2024-10-09 08:45 | Oncology outpatient (recurring) (ONCR) | payer MEDICARE, BC, SELFPAY ==
[2024-10-09] MEDS: acetaminophen 325 mg Tablet 650 MG PO (09:57)
[2024-10-09] MEDS: diphenhydrAMINE 25 mg Capsule PO (09:57)
[2024-10-09 10:33] VITALS: BP 111/69; PULSE 66; RESP 18; TEMP 37.1; O2SAT 97
[2024-10-09] MEDS: sodium chloride 0.9% 250 ML 35 ML IV (10:43)
[2024-10-09 10:46] VITALS: BP 158/77; PULSE 65; RESP 18; TEMP 36.8; O2SAT 99
[2024-10-09 12:35] VITALS: BP 144/81; PULSE 60; RESP 17; TEMP 36.4; O2SAT 97
[2024-10-09 14:50] VITALS: BP 149/82; PULSE 58; RESP 17; TEMP 36.6; O2SAT 97
== END 2024-10-19 23:59 | disposition home or self-care (01) ==
LOC: ONCMED 08:46
PROVIDERS: PCP Registered Nurse; Visit Provider Internal Medicine Medical Oncology
DX: D46.1 Refractory anemia with ring sideroblasts (principal); Z79.899 Other long term (current) drug therapy
CPT/HCPCS: 36430; 86850; 86900; 86920; J7050; J9999; P9016

== ENCOUNTER 2024-10-29 12:39 | Oncology outpatient (recurring) (ONCR) | payer MEDICARE, BC, SELFPAY ==
[2024-10-29 13:06] LABS: Basophils % 0.7 %; Eosinophils % 0.7 %; Hematocrit 30.8 % (37-53); Lymphocytes # 1.1 10^3/uL (0.8-4.8); Lymphocytes % 40.4 %; Mean Corpuscular HGB Conc 32.5 g/dL (30-55); Mean Corpuscular Hemoglobin 35.5 pg (27-33); Mean Corpuscular Volume 109.2 fl (82-101); Mean Platelet Volume 10.8 fL (7.4-10.4); Monocytes # 0.3 10^3/uL (0.2-0.9); Monocytes % 11.6 %; Neutrophils # 1.19 10^3/uL (1.8-7.7); Nucleated Red Blood Cells % 0 %; Platelet Count 110 10^3/cmm (157-399); Red Blood Count 2.82 10^6/uL (3.85-5.65); Red Cell Distribution Width 19.6 % (12.1-15.1); White Blood Count 2.77 10^3/uL (3.29-11.43)
[2024-10-29 13:24] LABS: Alanine Aminotransferase 16 U/L (0-41); Albumin Level 4.3 g/dL (3.5-5.2); Alkaline Phosphatase 95 U/L (40-130); Anion Gap 15.8 (5-19); Aspartate Amino Transferase 20 U/L (0-40); Blood Urea Nitrogen 22 mg/dL (8-23); Carbon Dioxide 23 mmol/L (22-29); Chloride 99 mmol/L (98-107); Creatinine Clr Calc Pharmacy 71.0762; Ferritin 934 ng/mL (30-400); Globulin 2.6 g/dL (1.3-4.6); Glomerular Filtration Rate 66.8 mL/min (90-130); Glucose 88 mg/dL (65-115); Iron 180 ug/dL (59-158); Osmolality Calculated 279 mOsm/kg (285-295); Percent Saturation 90.9 % (20-50); Potassium 4.8 mmol/L (3.5-5.1); Sodium 133 mmol/L (136-145); Total Bilirubin 0.6 mg/dL (0.15-1.2); Total Iron Binding Capacity 198 mcg/dl; Total Protein 6.9 g/dL (6.6-8.7); Unsaturated Iron Binding 18 ug/dL (112-347)
[2024-10-29] MEDS: luspatercept-aamt 75 mg 140 MG SUBCUT (14:51)
== END 2024-10-29 23:59 | disposition home or self-care (01) ==
PROVIDERS: Nurse Practitioner Family; PCP Registered Nurse; Visit Provider Internal Medicine Medical Oncology
DX: D46.1 Refractory anemia with ring sideroblasts (principal); Z87.891 Personal history of nicotine dependence; Z79.899 Other long term (current) drug therapy; R03.0 Elevated blood-pressure reading, without diagnosis of hypertension
CPT/HCPCS: 36415; 80053; 82728; 83540; 83550; 85025; 96372; 99213; J0896

== ENCOUNTER 2024-11-19 11:50 | Oncology outpatient (recurring) (ONCR) | payer MEDICARE, BC, SELFPAY ==
[2024-11-19 12:13] LABS: Hematocrit 27.0 % (37-53); Hemoglobin 8.90 g/dL (11.27-16.99); Mean Corpuscular HGB Conc 33.0 g/dL (30-55); Mean Corpuscular Hemoglobin 36.0 pg (27-33); Mean Corpuscular Volume 109.3 fl (82-101); Nucleated Red Blood Cells % 0 %; Platelet Count 113 10^3/cmm (157-399); Red Blood Count 2.47 10^6/uL (3.85-5.65); White Blood Count 2.93 10^3/uL (3.29-11.43)
[2024-11-19 12:33] LABS: Alanine Aminotransferase 18 U/L (0-41); Albumin Level 4.0 g/dL (3.5-5.2); Alkaline Phosphatase 106 U/L (40-130); Anion Gap 17.1 (5-19); Aspartate Amino Transferase 19 U/L (0-40); Blood Urea Nitrogen 17 mg/dL (8-23); Calcium 8.6 mg/dL (8.5-10.5); Carbon Dioxide 21 mmol/L (22-29); Chloride 103 mmol/L (98-107); Creatinine Clr Calc Pharmacy 71.2487; Globulin 2.6 g/dL (1.3-4.6); Glucose 96 mg/dL (65-115); Iron 190 ug/dL (59-158); Osmolality Calculated 283 mOsm/kg (285-295); Potassium 5.1 mmol/L (3.5-5.1); Sodium 136 mmol/L (136-145); Total Protein 6.6 g/dL (6.6-8.7)
[2024-11-19 12:47] LABS: Ferritin 1257 ng/mL (30-400)
[2024-11-19 12:48] LABS: Vitamin B12 1026 pg/mL (232-1245)
[2024-11-19 13:15] LABS: Total Iron Binding Capacity 207 mcg/dl; Unsaturated Iron Binding < 17 ug/dL (112-347)
[2024-11-19] MEDS: luspatercept-aamt 75 mg 140 MG SUBCUT (13:57)
== END 2024-11-19 23:59 | disposition home or self-care (01) ==
PROVIDERS: Nurse Practitioner Family; PCP Registered Nurse; Visit Provider Internal Medicine Medical Oncology
DX: D46.1 Refractory anemia with ring sideroblasts (principal); E83.19 Other disorders of iron metabolism; R06.02 Shortness of breath; M54.50 Low back pain, unspecified; R51.9 Headache, unspecified; R42 Dizziness and giddiness; R03.0 Elevated blood-pressure reading, without diagnosis of hypertension; Z79.899 Other long term (current) drug therapy; Z87.891 Personal history of nicotine dependence
CPT/HCPCS: 36415; 80053; 81256; 82607; 82728; 82746; 83540; 83550; 85025; 96402; 99214; J0896

== ENCOUNTER 2024-11-21 07:21 | Outpatient (CLI) | payer MEDICARE, BC, SELFPAY ==
--- NOTE | 2024-11-21 07:25 | CT_ITS ---
WS: [id number] CT NECK TECHNIQUE: Contrast-enhanced CT of the neck with coronal and sagittal reformatted images. CLINICAL INFORMATION: SIALOLITHIASIS COMPARISON: 2022 DLP: 201.[address] scans at [facility] use at least one of these dose optimization techniques: automated exposure control; mA and/or kV adjustment per patient size (includes targeted exams where dose is matched to clinical indication); or iterative reconstruction. FINDINGS: Artifact degrades some images at the tongue base Chronic LEFT submandibular duct calculus is unchanged since 2018. This measures approximately 7.4 x 5.9 cm unchanged. Absent or atrophic LEFT submandibular gland. Normal RIGHT submandibular gland. No evidence of supraglottic or glottic mass. Normal palatine tonsils. Normal glottis. Normal subglottic airway. Parotid glands are normal. Opacification LEFT maxillary sinus with inspissated secretions compatible with sinusitis progressed compared to previous. Mild mucosal thickening with secretions in the sphenoid sinus and ethmoid air cells. Small amount of fluid in the RIGHT maxillary sinus. LEFT mastoid air cells well aerated. Prior RIGHT canal wall up mastoidectomy. Visualized mastoidectomy bowl well aerated. CT/CT neck w con* [id number] IMPRESSION: 1. Stable 7.4 x 5.9 mm LEFT submandibular duct calculus. This is unchanged sin ce 2018 2. Absent or atrophic LEFT submandibular gland. 3. No cervical lymphadenopathy. 4. Prior RIGHT canal wall up mastoidectomy. 5. LEFT maxillary sinusitis is progressed.
[2024-11-21] MEDS: iohexol 350 mg/mL 500 mL Btl (per mL) IV (07:51)
== END 2024-11-21 07:22 | disposition home or self-care (01) ==
LOC: RAD 07:22
PROVIDERS: PCP Registered Nurse; Visit Provider Specialist
DX: K11.5 Sialolithiasis (principal); J32.0 Chronic maxillary sinusitis
CPT/HCPCS: 70491

== ENCOUNTER 2024-12-10 11:27 | Oncology outpatient (recurring) (ONCR) | payer MEDICARE, BC, SELFPAY ==
[2024-12-10 12:00] LABS: Hematocrit 24.6 % (37-53); Hemoglobin 8.20 g/dL (11.27-16.99); Mean Corpuscular HGB Conc 33.3 g/dL (30-55); Mean Corpuscular Hemoglobin 36.9 pg (27-33); Mean Corpuscular Volume 110.8 fl (82-101); Nucleated Red Blood Cells % 0.6 %; Platelet Count 124 10^3/cmm (157-399); Red Blood Count 2.22 10^6/uL (3.85-5.65); White Blood Count 3.11 10^3/uL (3.29-11.43)
[2024-12-10 12:21] LABS: Alanine Aminotransferase 14 U/L (0-41); Albumin Level 4.1 g/dL (3.5-5.2); Alkaline Phosphatase 100 U/L (40-130); Anion Gap 15.8 (5-19); Aspartate Amino Transferase 19 U/L (0-40); Blood Urea Nitrogen 19 mg/dL (8-23); Calcium 8.9 mg/dL (8.5-10.5); Carbon Dioxide 22 mmol/L (22-29); Chloride 102 mmol/L (98-107); Creatinine Clr Calc Pharmacy 77.4756; Globulin 2.7 g/dL (1.3-4.6); Glucose 99 mg/dL (65-115); Osmolality Calculated 282 mOsm/kg (285-295); Potassium 4.8 mmol/L (3.5-5.1); Sodium 135 mmol/L (136-145); Total Protein 6.8 g/dL (6.6-8.7)
[2024-12-10] MEDS: luspatercept-aamt 75 mg 141.5 MG SUBCUT (14:34)
== END 2024-12-10 23:59 | disposition home or self-care (01) ==
PROVIDERS: Nurse Practitioner Family; PCP Registered Nurse; Visit Provider Internal Medicine Medical Oncology
DX: D46.1 Refractory anemia with ring sideroblasts (principal); R03.0 Elevated blood-pressure reading, without diagnosis of hypertension; Z87.891 Personal history of nicotine dependence; Z79.899 Other long term (current) drug therapy
CPT/HCPCS: 36415; 80053; 85025; 96372; 99213; J0896

== ENCOUNTER 2024-12-17 08:13 | Outpatient (CLI) | payer MEDICARE, BC, SELFPAY | END 2024-12-17 08:14 | disposition home or self-care (01) | LOC: RT 08:14 | PROVIDERS: PCP Registered Nurse; Visit Provider Specialist | DX: Z01.818 Encounter for other preprocedural examination (principal) | CPT/HCPCS: 94010 ==

== ENCOUNTER 2025-01-01 08:00 | Oncology outpatient (recurring) (ONCR) | payer MEDICARE, BC, SELFPAY ==
[2024-12-31 09:22] LABS: Hematocrit 22.6 % (37-53); Hemoglobin 7.40 g/dL (11.27-16.99); Mean Corpuscular HGB Conc 32.7 g/dL (30-55); Mean Corpuscular Hemoglobin 37.2 pg (27-33); Mean Corpuscular Volume 113.6 fl (82-101); Platelet Count 141 10^3/cmm (157-399); Red Blood Count 1.99 10^6/uL (3.85-5.65); White Blood Count 3.41 10^3/uL (3.29-11.43)
[2024-12-31 09:37] LABS: Alanine Aminotransferase 14 U/L (0-41); Albumin Level 4.0 g/dL (3.5-5.2); Alkaline Phosphatase 99 U/L (40-130); Anion Gap 13.8 (5-19); Aspartate Amino Transferase 20 U/L (0-40); Blood Urea Nitrogen 18 mg/dL (8-23); Calcium 9.0 mg/dL (8.5-10.5); Carbon Dioxide 24 mmol/L (22-29); Chloride 104 mmol/L (98-107); Creatinine Clr Calc Pharmacy 64.2607; Globulin 2.7 g/dL (1.3-4.6); Glucose 103 mg/dL (65-115); Osmolality Calculated 286 mOsm/kg (285-295); Potassium 4.8 mmol/L (3.5-5.1); Sodium 137 mmol/L (136-145); Total Protein 6.7 g/dL (6.6-8.7)
[2024-12-31 10:13] LABS: Slide Review Slide Review Perform
[2024-12-31 10:14] LABS: Absolute Segmented Neutrophil 1.8 10/cmm (1.6-7.1); Atypical Lymphs 1.0 % (0-5); Band Neutrophils Absolute 0.1 10^3/cmm (0.0-1.2); Total Cells Counted 100 (0-100)
[2024-12-31] MEDS: luspatercept-aamt 25 mg 140 MG SUBCUT (11:42)
[2025-01-01] VITALS (10 sets, daily range): BP systolic 103–140; BP diastolic 62–78; PULSE 53–63; RESP 17–18; TEMP 36.3–36.4; O2SAT 96–99
[2025-01-01] MEDS: deferoxamine 2 GM in sodium chloride 0.9% 250 ML IV (09:15)
== END 2025-01-01 23:59 | disposition home or self-care (01) ==
PROVIDERS: Nurse Practitioner Family; PCP Registered Nurse; Visit Provider Internal Medicine
DX: Z53.9 Procedure and treatment not carried out, unspecified reason; D46.1 Refractory anemia with ring sideroblasts; Z79.899 Other long term (current) drug therapy
CPT/HCPCS: 36415; 36430; 80053; 85007; 85025; 86850; 86900; 86920; 96365; 96366; 96372; 99214; J0895; J0896; J7050; J9999; P9016

== ENCOUNTER → 2025-02-13 08:29 | Outpatient (BNVA) | payer MEDICARE, BC, SELFPAY | PROVIDERS: PCP Registered Nurse; Visit Provider Internal Medicine | DX: J45.20 Mild intermittent asthma, uncomplicated (principal); R91.8 Other nonspecific abnormal finding of lung field; Z87.891 Personal history of nicotine dependence | CPT/HCPCS: 99214 ==

== ENCOUNTER 2025-02-18 09:45 | Oncology outpatient (recurring) (ONCR) | payer MEDICARE, BC, SELFPAY ==
[2025-01-21 08:25] LABS: Hematocrit 27.1 % (37-53); Hemoglobin 8.90 g/dL (11.27-16.99); Mean Corpuscular HGB Conc 32.8 g/dL (30-55); Mean Corpuscular Hemoglobin 35.3 pg (27-33); Mean Corpuscular Volume 107.5 fl (82-101); Platelet Count 129 10^3/cmm (157-399); Red Blood Count 2.52 10^6/uL (3.85-5.65); White Blood Count 2.66 10^3/uL (3.29-11.43)
[2025-01-21 08:45] LABS: Alanine Aminotransferase 21 U/L (0-41); Albumin Level 4.0 g/dL (3.5-5.2); Alkaline Phosphatase 109 U/L (40-130); Anion Gap 12.5 (5-19); Aspartate Amino Transferase 28 U/L (0-40); Blood Urea Nitrogen 22 mg/dL (8-23); Calcium 8.9 mg/dL (8.5-10.5); Carbon Dioxide 25 mmol/L (22-29); Chloride 103 mmol/L (98-107); Creatinine Clr Calc Pharmacy 64.4120; Globulin 2.8 g/dL (1.3-4.6); Glucose 91 mg/dL (65-115); Osmolality Calculated 285 mOsm/kg (285-295); Potassium 4.5 mmol/L (3.5-5.1); Sodium 136 mmol/L (136-145); Total Protein 6.8 g/dL (6.6-8.7)
[2025-01-21 09:12] LABS: Slide Review Slide Review Perform
[2025-01-21 09:16] LABS: Absolute Segmented Neutrophil 1.3 10/cmm (1.6-7.1); Atypical Lymphs 0.0 % (0-5); Band Neutrophils Absolute 0.0 10^3/cmm (0.0-1.2); Total Cells Counted 100 (0-100)
[2025-02-04 08:43] LABS: Alanine Aminotransferase 16 U/L (0-41); Albumin Level 3.9 g/dL (3.5-5.2); Alkaline Phosphatase 103 U/L (40-130); Anion Gap 13.2 (5-19); Aspartate Amino Transferase 19 U/L (0-40); Blood Urea Nitrogen 19 mg/dL (8-23); Calcium 8.7 mg/dL (8.5-10.5); Carbon Dioxide 24 mmol/L (22-29); Chloride 107 mmol/L (98-107); Creatinine Clr Calc Pharmacy 64.4120; Globulin 2.6 g/dL (1.3-4.6); Glucose 81 mg/dL (65-115); Iron 181 ug/dL (59-158); Osmolality Calculated 291 mOsm/kg (285-295); Potassium 4.2 mmol/L (3.5-5.1); Sodium 140 mmol/L (136-145); Total Protein 6.5 g/dL (6.6-8.7)
[2025-02-04 08:57] LABS: Ferritin 1314 ng/mL (30-400)
[2025-02-04 08:58] LABS: Unsaturated Iron Binding < 17 ug/dL (112-347)
[2025-02-04 08:59] LABS: Total Iron Binding Capacity 198 mcg/dl; Vitamin B12 1264 pg/mL (232-1245)
[2025-02-04 09:10] LABS: Hematocrit 24.6 % (37-53); Hemoglobin 7.90 g/dL (11.27-16.99); Mean Corpuscular HGB Conc 32.1 g/dL (30-55); Mean Corpuscular Hemoglobin 35.0 pg (27-33); Mean Corpuscular Volume 108.8 fl (82-101); Nucleated Red Blood Cells % 0 %; Platelet Count 112 10^3/cmm (157-399); Red Blood Count 2.26 10^6/uL (3.85-5.65); White Blood Count 2.63 10^3/uL (3.29-11.43)
[2025-02-04] MEDS: epoetin alfa-epbx 40,000 unit/ml SDV (non-ESRD oncology clinic) 40000 UNIT SUBCUT (10:05)
[2025-02-11 10:09] LABS: Hematocrit 23.1 % (37-53); Hemoglobin 7.60 g/dL (11.27-16.99); Mean Corpuscular HGB Conc 32.9 g/dL (30-55); Mean Corpuscular Hemoglobin 35.8 pg (27-33); Mean Corpuscular Volume 109.0 fl (82-101); Nucleated Red Blood Cells % 0 %; Platelet Count 94 10^3/cmm (157-399); Red Blood Count 2.12 10^6/uL (3.85-5.65); White Blood Count 1.68 10^3/uL (3.29-11.43)
[2025-02-11 10:39] LABS: Slide Review Slide Review Perform
[2025-02-11] MEDS: epoetin alfa-epbx 40,000 unit/ml SDV (non-ESRD oncology clinic) 40000 UNIT SUBCUT (12:03)
[2025-02-12] VITALS (9 sets, daily range): BP systolic 125–151; BP diastolic 0–82; PULSE 54–72; RESP 17; TEMP 36.1–36.9; O2SAT 98–99
[2025-02-18 09:46] LABS: Hematocrit 28.4 % (37-53); Hemoglobin 9.40 g/dL (11.27-16.99); Mean Corpuscular HGB Conc 33.1 g/dL (30-55); Mean Corpuscular Hemoglobin 34.2 pg (27-33); Mean Corpuscular Volume 103.3 fl (82-101); Platelet Count 108 10^3/cmm (157-399); Red Blood Count 2.75 10^6/uL (3.85-5.65); White Blood Count 2.23 10^3/uL (3.29-11.43)
[2025-02-18 10:22] LABS: Slide Review Slide Review Perform
[2025-02-18 10:23] LABS: Absolute Segmented Neutrophil 0.8 10/cmm (1.6-7.1); Atypical Lymphs 7.0 % (0-5); Band Neutrophils Absolute 0.3 10^3/cmm (0.0-1.2); Total Cells Counted 100 (0-100)
[2025-02-18] MEDS: epoetin alfa-epbx 40,000 unit/ml SDV (non-ESRD oncology clinic) 40000 UNIT SUBCUT (10:37)
== END 2025-02-18 23:59 | disposition home or self-care (01) ==
PROVIDERS: Nurse Practitioner Family; PCP Registered Nurse; Visit Provider Internal Medicine Medical Oncology
DX: Z53.9 Procedure and treatment not carried out, unspecified reason; D46.Z Other myelodysplastic syndromes; Z79.899 Other long term (current) drug therapy
CPT/HCPCS: 36415; 36430; 80053; 82607; 82668; 82728; 82746; 83540; 83550; 85007; 85025; 86850; 86900; 86920; 96372; 99214; 99215; J7040; J7050; J9999; P9016; Q5106

== ENCOUNTER 2025-03-19 07:49 | Oncology outpatient (recurring) (ONCR) | payer MEDICARE, BC, SELFPAY ==
[2025-02-25 09:46] LABS: Hematocrit 26.2 % (37-53); Hemoglobin 8.50 g/dL (11.27-16.99); Mean Corpuscular HGB Conc 32.4 g/dL (30-55); Mean Corpuscular Hemoglobin 33.7 pg (27-33); Mean Corpuscular Volume 104.0 fl (82-101); Nucleated Red Blood Cells % 0 %; Platelet Count 105 10^3/cmm (157-399); Red Blood Count 2.52 10^6/uL (3.85-5.65); White Blood Count 1.76 10^3/uL (3.29-11.43)
[2025-02-25 10:18] LABS: Slide Review Slide Review Perform
[2025-02-25] MEDS: epoetin alfa-epbx 40,000 unit/ml SDV (non-ESRD oncology clinic) 40000 UNIT SUBCUT (10:47)
[2025-03-04 10:13] LABS: Hematocrit 24.1 % (37-53); Hemoglobin 8.00 g/dL (11.27-16.99); Mean Corpuscular HGB Conc 33.2 g/dL (30-55); Mean Corpuscular Hemoglobin 34.6 pg (27-33); Mean Corpuscular Volume 104.3 fl (82-101); Nucleated Red Blood Cells % 0 %; Platelet Count 105 10^3/cmm (157-399); Red Blood Count 2.31 10^6/uL (3.85-5.65); White Blood Count 1.44 10^3/uL (3.29-11.43)
[2025-03-04 10:30] LABS: Alanine Aminotransferase 21 U/L (0-41); Albumin Level 4.2 g/dL (3.5-5.2); Alkaline Phosphatase 86 U/L (40-130); Anion Gap 16.4 (5-19); Aspartate Amino Transferase 27 U/L (0-40); Blood Urea Nitrogen 13 mg/dL (8-23); Calcium 9.1 mg/dL (8.5-10.5); Carbon Dioxide 25 mmol/L (22-29); Chloride 103 mmol/L (98-107); Globulin 2.4 g/dL (1.3-4.6); Glucose 82 mg/dL (65-115); Osmolality Calculated 289 mOsm/kg (285-295); Potassium 4.4 mmol/L (3.5-5.1); Sodium 140 mmol/L (136-145); Total Protein 6.6 g/dL (6.6-8.7)
[2025-03-04 10:40] LABS: Slide Review Slide Review Perform
[2025-03-04] MEDS: EPOETIN ALFA EPBX 60000 UNIT SUBCUT (11:10)
[2025-03-11 09:38] LABS: Hematocrit 23.8 % (37-53); Hemoglobin 7.90 g/dL (11.27-16.99); Mean Corpuscular HGB Conc 33.2 g/dL (30-55); Mean Corpuscular Hemoglobin 35.0 pg (27-33); Mean Corpuscular Volume 105.3 fl (82-101); Nucleated Red Blood Cells % 0 %; Platelet Count 110 10^3/cmm (157-399); Red Blood Count 2.26 10^6/uL (3.85-5.65); White Blood Count 2.22 10^3/uL (3.29-11.43)
[2025-03-11 09:54] LABS: Alanine Aminotransferase 24 U/L (0-41); Albumin Level 4.1 g/dL (3.5-5.2); Alkaline Phosphatase 88 U/L (40-130); Anion Gap 14.8 (5-19); Aspartate Amino Transferase 25 U/L (0-40); Blood Urea Nitrogen 14 mg/dL (8-23); Calcium 9.0 mg/dL (8.5-10.5); Carbon Dioxide 25 mmol/L (22-29); Chloride 103 mmol/L (98-107); Creatinine Clr Calc Pharmacy 85.6809; Globulin 2.4 g/dL (1.3-4.6); Glucose 89 mg/dL (65-115); Osmolality Calculated 286 mOsm/kg (285-295); Potassium 4.8 mmol/L (3.5-5.1); Sodium 138 mmol/L (136-145); Total Protein 6.5 g/dL (6.6-8.7)
[2025-03-11] MEDS: EPOETIN ALFA EPBX 60000 UNIT SUBCUT (11:00)
[2025-03-18 08:58] LABS: Hematocrit 23.5 % (37-53); Hemoglobin 7.60 g/dL (11.27-16.99); Mean Corpuscular HGB Conc 32.3 g/dL (30-55); Mean Corpuscular Hemoglobin 34.7 pg (27-33); Mean Corpuscular Volume 107.3 fl (82-101); Nucleated Red Blood Cells % 0 %; Platelet Count 130 10^3/cmm (157-399); Red Blood Count 2.19 10^6/uL (3.85-5.65); White Blood Count 2.81 10^3/uL (3.29-11.43)
[2025-03-18] MEDS: EPOETIN ALFA EPBX 60000 UNIT SUBCUT (10:27)
[2025-03-19] VITALS (12 sets, daily range): BP systolic 91–108; BP diastolic 55–66; PULSE 62–80; RESP 16; TEMP 36–36.6; O2SAT 98–99
== END 2025-03-21 23:59 | disposition home or self-care (01) ==
PROVIDERS: Nurse Practitioner Family; PCP Registered Nurse; Visit Provider Internal Medicine Medical Oncology
DX: D64.9 Anemia, unspecified (principal); Z79.899 Other long term (current) drug therapy
CPT/HCPCS: 36415; 36430; 80053; 85025; 86850; 86900; 86920; 96372; 99214; J7050; J9999; P9016; Q5101; Q5106

== ENCOUNTER 2025-04-15 09:45 | Oncology outpatient (recurring) (ONCR) | payer MEDICARE, BC, SELFPAY ==
[2025-03-25 09:07] LABS: Hematocrit 29.4 % (37-53); Hemoglobin 9.60 g/dL (11.27-16.99); Mean Corpuscular HGB Conc 32.7 g/dL (30-55); Mean Corpuscular Hemoglobin 33.0 pg (27-33); Mean Corpuscular Volume 101.0 fl (82-101); Nucleated Red Blood Cells % 0 %; Platelet Count 111 10^3/cmm (157-399); Red Blood Count 2.91 10^6/uL (3.85-5.65); White Blood Count 2.54 10^3/uL (3.29-11.43)
[2025-03-25] MEDS: EPOETIN ALFA EPBX 60000 UNIT SUBCUT (10:02)
[2025-04-01 09:02] LABS: Hematocrit 26.8 % (37-53); Hemoglobin 8.80 g/dL (11.27-16.99); Mean Corpuscular HGB Conc 32.8 g/dL (30-55); Mean Corpuscular Hemoglobin 33.8 pg (27-33); Mean Corpuscular Volume 103.1 fl (82-101); Nucleated Red Blood Cells % 0 %; Platelet Count 110 10^3/cmm (157-399); Red Blood Count 2.60 10^6/uL (3.85-5.65); White Blood Count 1.60 10^3/uL (3.29-11.43)
[2025-04-01 09:19] LABS: Slide Review Slide Review Perform
[2025-04-01] MEDS: EPOETIN ALFA EPBX 60000 UNIT SUBCUT (09:58)
[2025-04-08 09:11] LABS: Hematocrit 26.4 % (37-53); Hemoglobin 8.70 g/dL (11.27-16.99); Mean Corpuscular HGB Conc 33.0 g/dL (30-55); Mean Corpuscular Hemoglobin 34.3 pg (27-33); Mean Corpuscular Volume 103.9 fl (82-101); Nucleated Red Blood Cells % 0 %; Platelet Count 121 10^3/cmm (157-399); Red Blood Count 2.54 10^6/uL (3.85-5.65); White Blood Count 1.56 10^3/uL (3.29-11.43)
[2025-04-08 09:43] LABS: Alanine Aminotransferase 35 U/L (0-41); Albumin Level 4.3 g/dL (3.5-5.2); Alkaline Phosphatase 101 U/L (40-130); Anion Gap 15.3 (5-19); Aspartate Amino Transferase 28 U/L (0-40); Blood Urea Nitrogen 17 mg/dL (8-23); Calcium 9.1 mg/dL (8.5-10.5); Carbon Dioxide 25 mmol/L (22-29); Chloride 103 mmol/L (98-107); Globulin 2.4 g/dL (1.3-4.6); Glucose 92 mg/dL (65-115); Osmolality Calculated 289 mOsm/kg (285-295); Potassium 4.3 mmol/L (3.5-5.1); Sodium 139 mmol/L (136-145); Total Protein 6.7 g/dL (6.6-8.7)
[2025-04-08] MEDS: EPOETIN ALFA EPBX 60000 UNIT SUBCUT (11:15)
[2025-04-15 10:06] LABS: Hematocrit 25.0 % (37-53); Hemoglobin 8.10 g/dL (11.27-16.99); Mean Corpuscular HGB Conc 32.4 g/dL (30-55); Mean Corpuscular Hemoglobin 33.8 pg (27-33); Mean Corpuscular Volume 104.2 fl (82-101); Nucleated Red Blood Cells % 0 %; Platelet Count 108 10^3/cmm (157-399); Red Blood Count 2.40 10^6/uL (3.85-5.65); White Blood Count 2.18 10^3/uL (3.29-11.43)
[2025-04-15] MEDS: EPOETIN ALFA EPBX 60000 UNIT SUBCUT (11:35)
== END 2025-04-20 23:59 | disposition home or self-care (01) ==
PROVIDERS: Nurse Practitioner; Nurse Practitioner Family; PCP Registered Nurse; Visit Provider Internal Medicine Medical Oncology
DX: Z53.9 Procedure and treatment not carried out, unspecified reason; D46.1 Refractory anemia with ring sideroblasts; Z79.899 Other long term (current) drug therapy
CPT/HCPCS: 36415; 80053; 85025; 96372; 99214; Q5101; Q5106

== ENCOUNTER 2025-05-20 10:00 | Oncology outpatient (recurring) (ONCR) | payer MEDICARE, BC, SELFPAY ==
[2025-04-22 10:03] LABS: Hematocrit 23.3 % (37-53); Hemoglobin 7.60 g/dL (11.27-16.99); Mean Corpuscular HGB Conc 32.6 g/dL (30-55); Mean Corpuscular Hemoglobin 33.9 pg (27-33); Mean Corpuscular Volume 104.0 fl (82-101); Nucleated Red Blood Cells % 0 %; Platelet Count 102 10^3/cmm (157-399); Red Blood Count 2.24 10^6/uL (3.85-5.65); White Blood Count 1.80 10^3/uL (3.29-11.43)
[2025-04-22] MEDS: EPOETIN ALFA EPBX 60000 UNIT SUBCUT (11:28)
[2025-04-29 09:51] LABS: Hematocrit 22.0 % (37-53); Hemoglobin 7.30 g/dL (11.27-16.99); Mean Corpuscular HGB Conc 33.2 g/dL (30-55); Mean Corpuscular Hemoglobin 35.1 pg (27-33); Mean Corpuscular Volume 105.8 fl (82-101); Nucleated Red Blood Cells % 0 %; Platelet Count 151 10^3/cmm (157-399); Red Blood Count 2.08 10^6/uL (3.85-5.65); White Blood Count 1.95 10^3/uL (3.29-11.43)
[2025-04-29] MEDS: EPOETIN ALFA EPBX 60000 UNIT SUBCUT (10:56)
[2025-04-29 10:57] VITALS: BP 132/74; PULSE 68; RESP 16; TEMP 36.6
[2025-05-01] VITALS (11 sets, daily range): BP systolic 101–135; BP diastolic 61–77; PULSE 56–72; RESP 16; TEMP 36.4–36.7; O2SAT 95–99
[2025-05-01 08:10] LABS: Hemoglobin 6.70 g/dL (11.27-16.99)
[2025-05-01 08:35] LABS: Hematocrit 20.7 % (37-53)
[2025-05-01] MEDS: deferoxamine 2 GM in sodium chloride 0.9% 250 ML IV (08:57)
[2025-05-06 10:21] LABS: Hemoglobin 9.60 g/dL (11.27-16.99); Nucleated Red Blood Cells % 0 %
[2025-05-06 10:48] LABS: Alanine Aminotransferase 34 U/L (0-41); Albumin Level 4.2 g/dL (3.5-5.2); Alkaline Phosphatase 110 U/L (40-130); Anion Gap 14.7 (5-19); Aspartate Amino Transferase 28 U/L (0-40); Blood Urea Nitrogen 16 mg/dL (8-23); Calcium 9.3 mg/dL (8.5-10.5); Carbon Dioxide 27 mmol/L (22-29); Chloride 103 mmol/L (98-107); Globulin 2.4 g/dL (1.3-4.6); Glucose 84 mg/dL (65-115); Iron 209 ug/dL (59-158); Osmolality Calculated 290 mOsm/kg (285-295); Potassium 4.7 mmol/L (3.5-5.1); Sodium 140 mmol/L (136-145); Total Protein 6.6 g/dL (6.6-8.7)
[2025-05-06 10:54] LABS: Hematocrit 29.5 % (37-53); Mean Corpuscular HGB Conc 32.5 g/dL (30-55); Mean Corpuscular Hemoglobin 34.3 pg (27-33); Mean Corpuscular Volume 105.4 fl (82-101); Platelet Count 113 10^3/cmm (157-399); Red Blood Count 2.80 10^6/uL (3.85-5.65); White Blood Count 2.10 10^3/uL (3.29-11.43)
[2025-05-06 11:17] LABS: Ferritin 1932 ng/mL (30-400)
[2025-05-06 11:20] LABS: Unsaturated Iron Binding < 16 ug/dL (112-347)
[2025-05-06] MEDS: EPOETIN ALFA EPBX 60000 UNIT SUBCUT (11:31)
[2025-05-13 09:24] LABS: Hematocrit 26.4 % (37-53); Hemoglobin 8.60 g/dL (11.27-16.99); Mean Corpuscular HGB Conc 32.6 g/dL (30-55); Mean Corpuscular Hemoglobin 34.0 pg (27-33); Mean Corpuscular Volume 104.3 fl (82-101); Nucleated Red Blood Cells % 0 %; Platelet Count 109 10^3/cmm (157-399); Red Blood Count 2.53 10^6/uL (3.85-5.65); White Blood Count 1.72 10^3/uL (3.29-11.43)
[2025-05-13] MEDS: EPOETIN ALFA EPBX 60000 UNIT SUBCUT (10:36)
[2025-05-20 10:06] LABS: Hematocrit 26.3 % (37-53); Hemoglobin 8.40 g/dL (11.27-16.99); Mean Corpuscular HGB Conc 31.9 g/dL (30-55); Mean Corpuscular Hemoglobin 33.2 pg (27-33); Mean Corpuscular Volume 104.0 fl (82-101); Nucleated Red Blood Cells % 0 %; Platelet Count 93 10^3/cmm (157-399); Red Blood Count 2.53 10^6/uL (3.85-5.65); White Blood Count 1.67 10^3/uL (3.29-11.43)
[2025-05-20] MEDS: EPOETIN ALFA EPBX 60000 UNIT SUBCUT (11:03)
== END 2025-05-21 23:59 | disposition home or self-care (01) ==
PROVIDERS: Nurse Practitioner; PCP Registered Nurse; Visit Provider Internal Medicine Medical Oncology
DX: D46.1 Refractory anemia with ring sideroblasts; Z79.899 Other long term (current) drug therapy; Z53.9 Procedure and treatment not carried out, unspecified reason
CPT/HCPCS: 36415; 36430; 80053; 82728; 83540; 83550; 85014; 85018; 85025; 86850; 86900; 86920; 96365; 96366; 96372; 99214; J0895; J7050; J9999; P9016; Q5101; Q5106